=== PATIENT | female | born 2000 | race Caucasian/White ===

== ENCOUNTER 2021-10-22 23:16 | Emergency (ER) | payer BC ==
[~2021-10-22] VITALS: Ht 157.5 cm; Wt 56.7 kg
[2021-10-23] MEDS ORDERED: NAPROXEN500 MG PO (04:16)
== END 2021-10-23 04:42 | disposition home or self-care (01) ==
LOC: ER 23:16
DX: S00.83XA Contusion of other part of head, initial encounter (principal); W01.0XXA Fall on same level from slipping, tripping and stumbling without subsequent striking against object, initial encounter; Y92.89 Other specified places as the place of occurrence of the external cause